=== PATIENT | male | born 1955 | race Caucasian/White ===

== ENCOUNTER 2020-07-20 11:38 | Emergency (ER) | payer MEDICARE, OTHER ==
[~2020-07-20] VITALS: Ht 175.3 cm; Wt 88.7 kg
[~2020-07-20 11:38] MED LIST: AMLO5TAB66 PO; ASPI-728 PO; DOCU-275 PO; ESCI20TA87 PO; HYDR25TA84 PO; ISOS30TA6 PO; SIMV-259 PO; TAMS-13 PO; TRAZ-252 PO
[2020-07-20 14:12] LABS: BASOPHILS % (AUTO) 0.7 % (0.0-2.0); EOSINOPHILS % (AUTO) 3.8 % (1.0-6.0); HEMATOCRIT 38.2 % (41-53); HEMOGLOBIN 12.8 g/dL (13.5-17.5); LYMPHOCYTES # (AUTO) 1.4 K/uL (1.0-4.8); MEAN CORPUSCULAR HEMOGLOBIN 32.2 pg (26.0-34.0); MEAN CORPUSCULAR HGB CONC 33.5 G/dL (31.0-37.0); MEAN CORPUSCULAR VOLUME 96 fL (80-100); MONOCYTES # (AUTO) 0.7 K/uL (0.1-1.0); MONOCYTES % (AUTO) 13.2 % (2.0-9.0); NEUTROPHILS # (AUTO) 2.7 K/uL (1.8-7.7); NEUTROPHILS % (AUTO) 54.3 % (40.0-70.0); PLATELET COUNT (AUTO) 117 K/uL (150-450); RED BLOOD CELL COUNT(AUTO) 3.97 MIL/uL (4.50-5.90); RED CELL DISTRIBUTION WIDTH 13.4 % (11.5-14.5)
[2020-07-20 14:21] LABS: ANION GAP 12 mmol/L (8-16); CALCIUM, TOTAL 8.7 mg/dL (8.8-10.5); CARBON DIOXIDE 23 mmol/L (22-29); CHLORIDE 104 mmol/L (98-107); CREATININE 1.02 mg/dL (0.60-1.30); GLOMERULAR FILTR. RATE CALC > 60 mL/min (>60); GLUCOSE,RANDOM 81 mg/dL (70-110); POTASSIUM 4.1 mmol/L (3.5-5.1); SODIUM SERUM 139 mmol/L (136-145); UREA NITROGEN, BLOOD 17 mg/dL (7-18)
[2020-07-20 14:29] LABS: B-TYPE NATRIURETIC PEPTIDE 22 pg/mL (0-100)
[2020-07-20 14:46] LABS: ALANINE AMINOTRANSFERASE 25 U/L (12-78); ALBUMIN 3.6 g/dL (3.4-5.0); ALKALINE PHOSPHATASE 112 U/L (46-116); ASPARTATE AMINOTRANSFERASE 17 U/L (15-37); BILIRUBIN,TOTAL 0.9 mg/dL (0.1-1.0); CREATINE KINASE, TOTAL ONLY 154 U/L (39-308); TOTAL PROTEIN, SERUM 6.9 g/dL (6.4-8.2)
[2020-07-20 14:47] VITALS: BP 138/85
[2020-07-20] MEDS ORDERED: ASPIRIN 81 MG CHEWABLE TABLET PO ONE (15:00)
== END 2020-07-20 17:01 | disposition home or self-care (01) ==
LOC: EMS 11:44 → EDBD 11:44 → EMS 17:01
DX: G45.9 Transient cerebral ischemic attack, unspecified (principal); R53.1 Weakness; F32.9 Major depressive disorder, single episode, unspecified; I10 Essential (primary) hypertension; Z86.73 Personal history of transient ischemic attack (TIA), and cerebral infarction without residual deficits; Z79.82 Long term (current) use of aspirin
CPT/HCPCS: 93005; 99284

== ENCOUNTER 2020-09-16 22:16 | Emergency (ER) | payer MEDICARE, OTHER ==
[~2020-09-16] VITALS: Ht 172.7 cm; Wt 89.6 kg
[~2020-09-16 22:16] MED LIST changes: +ASPI-1450 PO; -ASPI-728 PO; -ISOS30TA6 PO; +ISOS30TA92 PO
[2020-09-16 23:28] VITALS: BP 110/73
[2020-09-16 23:41] LABS: ANION GAP 12 mmol/L (8-16); BASOPHILS % (AUTO) 0.7 % (0.0-2.0); CALCIUM, TOTAL 8.3 mg/dL (8.8-10.5); CARBON DIOXIDE 24 mmol/L (22-29); CHLORIDE 110 mmol/L (98-107); CREATININE 1.08 mg/dL (0.60-1.30); EOSINOPHILS % (AUTO) 3.7 % (1.0-6.0); GLOMERULAR FILTR. RATE CALC > 60 mL/min (>60); GLUCOSE,RANDOM 123 mg/dL (70-110); HEMATOCRIT 38.6 % (41-53); HEMOGLOBIN 12.8 g/dL (13.5-17.5); LYMPHOCYTES # (AUTO) 1.7 K/uL (1.0-4.8); LYMPHOCYTES % (AUTO) 29.7 % (22.0-44.0); MEAN CORPUSCULAR HEMOGLOBIN 32.2 pg (26.0-34.0); MEAN CORPUSCULAR HGB CONC 33.3 G/dL (31.0-37.0); MEAN CORPUSCULAR VOLUME 97 fL (80-100); MONOCYTES # (AUTO) 0.5 K/uL (0.1-1.0); MONOCYTES % (AUTO) 9.3 % (2.0-9.0); NEUTROPHILS # (AUTO) 3.2 K/uL (1.8-7.7); NEUTROPHILS % (AUTO) 56.6 % (40.0-70.0); PLATELET COUNT (AUTO) 182 K/uL (150-450); POTASSIUM 3.7 mmol/L (3.5-5.1); RED BLOOD CELL COUNT(AUTO) 3.99 MIL/uL (4.50-5.90); RED CELL DISTRIBUTION WIDTH 13.2 % (11.5-14.5); SODIUM SERUM 146 mmol/L (136-145); UREA NITROGEN, BLOOD 19 mg/dL (7-18)
[2020-09-16 23:47] LABS: ALANINE AMINOTRANSFERASE 21 U/L (12-78); ALBUMIN 3.5 g/dL (3.4-5.0); ALKALINE PHOSPHATASE 153 U/L (46-116); ASPARTATE AMINOTRANSFERASE 15 U/L (15-37); BILIRUBIN,TOTAL 0.6 mg/dL (0.1-1.0); TOTAL PROTEIN, SERUM 7.2 g/dL (6.4-8.2)
[2020-09-16 23:52] LABS: INR 0.9 (0.9-1.1)
== END 2020-09-17 07:14 | disposition home or self-care (01) ==
LOC: EMS 22:19
DX: I10 Essential (primary) hypertension (principal); R51.9 Headache, unspecified; F32.9 Major depressive disorder, single episode, unspecified; Z86.73 Personal history of transient ischemic attack (TIA), and cerebral infarction without residual deficits; Z79.82 Long term (current) use of aspirin
CPT/HCPCS: 80053; 84484; 85025; 85610; 85730; 86850; 86900; 86901; 93005; 99285

== ENCOUNTER 2020-12-24 18:55 | Emergency (ER) | payer MEDICARE, OTHER ==
[~2020-12-24] VITALS: Ht 167.6 cm; Wt 75.0 kg
[2020-12-24 23:28] LABS: BASOPHILS % (AUTO) 0.4 % (0.0-2.0); EOSINOPHILS % (AUTO) 3.8 % (1.0-6.0); HEMATOCRIT 36.1 % (41-53); HEMOGLOBIN 12.2 g/dL (13.5-17.5); LYMPHOCYTES % (AUTO) 21.7 % (22.0-44.0); MEAN CORPUSCULAR HEMOGLOBIN 32.4 pg (26.0-34.0); MEAN CORPUSCULAR HGB CONC 33.8 G/dL (31.0-37.0); MEAN CORPUSCULAR VOLUME 96 fL (80-100); MONOCYTES # (AUTO) 0.7 K/uL (0.1-1.0); MONOCYTES % (AUTO) 15.7 % (2.0-9.0); NEUTROPHILS # (AUTO) 2.6 K/uL (1.8-7.7); NEUTROPHILS % (AUTO) 58.4 % (40.0-70.0); PLATELET COUNT (AUTO) 138 K/uL (150-450); RED BLOOD CELL COUNT(AUTO) 3.76 MIL/uL (4.50-5.90); RED CELL DISTRIBUTION WIDTH 13.9 % (11.5-14.5)
[2020-12-24 23:36] LABS: ANION GAP 10 mmol/L (8-16); CALCIUM, TOTAL 8.7 mg/dL (8.8-10.5); CARBON DIOXIDE 23 mmol/L (22-29); CHLORIDE 104 mmol/L (98-107); CREATININE 0.86 mg/dL (0.60-1.30); GLOMERULAR FILTR. RATE CALC > 60 mL/min (>60); GLUCOSE,RANDOM 101 mg/dL (70-110); SODIUM SERUM 137 mmol/L (136-145); UREA NITROGEN, BLOOD 15 mg/dL (7-18)
[2020-12-24 23:42] LABS: ALANINE AMINOTRANSFERASE 19 U/L (12-78); ALBUMIN 3.7 g/dL (3.4-5.0); ALKALINE PHOSPHATASE 120 U/L (46-116); ASPARTATE AMINOTRANSFERASE 18 U/L (15-37); BILIRUBIN,TOTAL 0.8 mg/dL (0.1-1.0); LIPASE 147 U/L (73-393)
[2020-12-25 07:36] LABS: APPEARANCE,URINE CLEAR (CLEAR); BILIRUBIN,URINE NEGATIVE (NEGATIVE); GLUCOSE, URINE (UA) NEGATIVE (NEGATIVE); KETONES,URINE TRACE mg/dL (NEGATIVE); LEUKOCYTE ESTERASE ,URINE NEGATIVE (NEGATIVE); NITRATE,URINE NEGATIVE (NEGATIVE); OCCULT BLOOD,URINE NEGATIVE (NEGATIVE); PROTEIN,URINE NEGATIVE (NEGATIVE)
[2020-12-25 07:46] LABS: BACTERIA,URINE None Seen /HPF (None Seen); CALCIUM OXALATE CRYSTALS,UR Few /LPF (None Seen); RBC,URINE None Seen /HPF (0-2); SQUAMOUS EPITHELIAL CELL,UR None Seen /LPF (None Seen); WBC,URINE None Seen /HPF (0-5)
[2020-12-25 07:58] VITALS: BP 124/76
[2020-12-27] MEDS ORDERED: ASPI-1227 PO ×4 (17:20→17:23)
[2020-12-27] MEDS ORDERED: ATOR20TA86 PO ×3 (17:21→17:24)
[2020-12-27] MEDS ORDERED: ASPI-1450 PO (17:23)
== END 2020-12-25 08:22 | disposition home or self-care (01) ==
LOC: EMS 19:00
DX: M48.36 Traumatic spondylopathy, lumbar region (principal); M43.16 Spondylolisthesis, lumbar region; M16.12 Unilateral primary osteoarthritis, left hip; K59.00 Constipation, unspecified; N32.9 Bladder disorder, unspecified; F32.9 Major depressive disorder, single episode, unspecified; I10 Essential (primary) hypertension; Z86.73 Personal history of transient ischemic attack (TIA), and cerebral infarction without residual deficits; Z79.82 Long term (current) use of aspirin
CPT/HCPCS: 72131; 72148; 74018; 80053; 81001; 83690; 85025; 99285; 36415-L1; 36415-TC

== ENCOUNTER 2021-05-31 20:44 | Emergency (ER) | payer MEDICARE, OTHER ==
[~2021-05-31] VITALS: Ht 172.7 cm; Wt 81.8 kg
[~2021-05-31 20:44] MED LIST changes: +AMLO-257 PO; -AMLO5TAB66 PO; +ATOR20TA86 PO; -DOCU-275 PO; -ESCI20TA87 PO; -HYDR25TA84 PO; -ISOS30TA92 PO; -SIMV-259 PO; -TAMS-13 PO; -TRAZ-252 PO
[2021-05-31] MEDS ORDERED: QUET25TA PO (21:12)
[2021-05-31] MEDS ORDERED: FINA-27 PO (21:12)
[2021-05-31] MEDS ORDERED: TAMS-13 PO (21:12)
[2021-05-31] MEDS ORDERED: SERT-158 PO (21:12)
[2021-05-31] MEDS ORDERED: SODIUM CHLORIDE 0.9% 1,000 ML IV ONE (22:00)
[2021-05-31 22:09] LABS: BASOPHILS % (AUTO) 0.6 % (0.0-2.0); HEMATOCRIT 36.3 % (41-53); HEMOGLOBIN 12.3 g/dL (13.5-17.5); LYMPHOCYTES # (AUTO) 1.6 K/uL (1.0-4.8); LYMPHOCYTES % (AUTO) 26.6 % (22.0-44.0); MEAN CORPUSCULAR HEMOGLOBIN 31.6 pg (26.0-34.0); MEAN CORPUSCULAR HGB CONC 33.8 G/dL (31.0-37.0); MEAN CORPUSCULAR VOLUME 94 fL (80-100); MONOCYTES # (AUTO) 0.8 K/uL (0.1-1.0); MONOCYTES % (AUTO) 13.9 % (2.0-9.0); NEUTROPHILS # (AUTO) 2.9 K/uL (1.8-7.7); NEUTROPHILS % (AUTO) 49.9 % (40.0-70.0); PLATELET COUNT (AUTO) 159 K/uL (150-450); RED BLOOD CELL COUNT(AUTO) 3.88 MIL/uL (4.50-5.90); RED CELL DISTRIBUTION WIDTH 14.6 % (11.5-14.5)
[2021-05-31 22:17] LABS: ANION GAP 4 mmol/L (8-16); CALCIUM, TOTAL 9.1 mg/dL (8.8-10.5); CARBON DIOXIDE 31 mmol/L (22-29); CHLORIDE 106 mmol/L (98-107); CREATININE 1.03 mg/dL (0.60-1.30); GLOMERULAR FILTR. RATE CALC > 60 mL/min (>60); GLUCOSE,RANDOM 96 mg/dL (70-110); POTASSIUM 4.5 mmol/L (3.5-5.1); SODIUM SERUM 141 mmol/L (136-145); UREA NITROGEN, BLOOD 28 mg/dL (7-18)
[2021-05-31 22:23] LABS: ALANINE AMINOTRANSFERASE 50 U/L (12-78); ALBUMIN 3.4 g/dL (3.4-5.0); ALKALINE PHOSPHATASE 118 U/L (46-116); ASPARTATE AMINOTRANSFERASE 22 U/L (15-37); BILIRUBIN,TOTAL 0.5 mg/dL (0.1-1.0); TOTAL PROTEIN, SERUM 7.2 g/dL (6.4-8.2)
[2021-05-31 22:44] LABS: APPEARANCE,URINE CLEAR (CLEAR); BILIRUBIN,URINE NEGATIVE (NEGATIVE); GLUCOSE, URINE (UA) NEGATIVE (NEGATIVE); KETONES,URINE NEGATIVE (NEGATIVE); LEUKOCYTE ESTERASE ,URINE NEGATIVE (NEGATIVE); NITRATE,URINE NEGATIVE (NEGATIVE); OCCULT BLOOD,URINE NEGATIVE (NEGATIVE); PROTEIN,URINE NEGATIVE (NEGATIVE)
[2021-05-31 23:19] VITALS: BP 145/84
[2021-05-31 23:22] LABS: BACTERIA,URINE Rare /HPF (None Seen); RBC,URINE None Seen /HPF (0-2); WBC,URINE 0-2 /HPF (0-5)
== END 2021-06-01 00:31 | disposition home or self-care (01) ==
LOC: EMS 20:49
DX: R35.0 Frequency of micturition (principal); I10 Essential (primary) hypertension; F32.9 Major depressive disorder, single episode, unspecified; Z79.899 Other long term (current) drug therapy; Z87.891 Personal history of nicotine dependence
CPT/HCPCS: 80053; 81001; 85025; 96360; 99283; 36415-L1; 36415-TC

== ENCOUNTER 2021-08-19 02:53 | Inpatient (IN) | payer MEDICARE, OTHER ==
[~2021-08-19] VITALS: Ht 165.1 cm; Wt 90.8 kg
[~2021-08-19 02:53] MED LIST changes: +ACET-2895 PO; +AUD NEB; +BISA10SU11 PR; +DOCU-270 PO; +FINA-27 PO; +HEPA500018 SQ; +OS500 PO; +PANT-31 PO; +QUET25TA PO; +SERT-158 PO; +TAMS-13 PO
[2021-08-19 03:42] LABS: COVID AG,FIA SOURCE NASAL SWAB
[2021-08-19 03:47] LABS: BASOPHILS % (AUTO) 0.4 % (0.0-2.0); EOSINOPHILS % (AUTO) 4.9 % (1.0-6.0); HEMOGLOBIN 13.5 g/dL (13.5-17.5); LYMPHOCYTES # (AUTO) 1.8 K/uL (1.0-4.8); LYMPHOCYTES % (AUTO) 30.2 % (22.0-44.0); MEAN CORPUSCULAR HGB CONC 34.5 G/dL (31.0-37.0); MEAN CORPUSCULAR VOLUME 93 fL (80-100); MONOCYTES # (AUTO) 0.6 K/uL (0.1-1.0); MONOCYTES % (AUTO) 10.4 % (2.0-9.0); NEUTROPHILS # (AUTO) 3.2 K/uL (1.8-7.7); NEUTROPHILS % (AUTO) 54.1 % (40.0-70.0); PLATELET COUNT (AUTO) 167 K/uL (150-450); RED BLOOD CELL COUNT(AUTO) 4.21 MIL/uL (4.50-5.90); RED CELL DISTRIBUTION WIDTH 14.1 % (11.5-14.5)
[2021-08-19 03:48] LABS: ANION GAP 9 mmol/L (8-16); CALCIUM, TOTAL 8.6 mg/dL (8.8-10.5); CARBON DIOXIDE 25 mmol/L (22-29); CHLORIDE 103 mmol/L (98-107); CREATININE 1.14 mg/dL (0.60-1.30); GLOMERULAR FILTR. RATE CALC > 60 mL/min (>60); GLUCOSE,RANDOM 92 mg/dL (70-110); POTASSIUM 3.9 mmol/L (3.5-5.1); SODIUM SERUM 137 mmol/L (136-145); UREA NITROGEN, BLOOD 19 mg/dL (7-18)
[2021-08-19] MEDS ORDERED: SODIUM CHLORIDE 0.9% 100 ML ONE (03:48)
[2021-08-19] MEDS ORDERED: IOHEXOL 350 MG/ML 100 ML VIAL ONE (03:48)
[2021-08-19 03:53] LABS: ALANINE AMINOTRANSFERASE 77 U/L (12-78); ALBUMIN 3.9 g/dL (3.4-5.0); ALKALINE PHOSPHATASE 137 U/L (46-116); ASPARTATE AMINOTRANSFERASE 42 U/L (15-37)
[2021-08-19 03:54] LABS: PROTHROMBIN TIME 10.5 SEC (9.4-11.6)
[2021-08-19 05:00] VITALS: BP 153/97
[2021-08-19] MEDS ORDERED: ONDANSETRON HCL 4 MG/2 ML VIAL IVP PRN (05:00)
[2021-08-19] MEDS ORDERED: SODIUM CHLORIDE 0.9% 1,000 ML IV ONE (05:00)
[2021-08-19] MEDS ORDERED: 0.9% SODIUM CHLORIDE 10 ML SYRINGE IVP PRN (05:00)
[2021-08-19] MEDS ORDERED: ASPIRIN 81 MG CHEWABLE TABLET PO ONE (05:00)
[2021-08-19 07:16] VITALS: BP 147/88
[2021-08-19] MEDS ORDERED: ACETAMINOPHEN 325 MG TABLET PO PRN (08:15)
[2021-08-19 08:36] LABS: AMPHET/METH SCREEN,URINE NEGATIVE (NEGATIVE); BARBITURATE SCREEN, URINE NEGATIVE (NEGATIVE); BENZODIAZEPINES SCREEN,URINE NEGATIVE (NEGATIVE); CANNABINOID SCREEN,URINE NEGATIVE (NEGATIVE); COCAINE SCREEN,URINE NEGATIVE (NEGATIVE); METHADONE SCREEN, URINE NEGATIVE (NEGATIVE); OPIATE SCREEN,URINE NEGATIVE (NEGATIVE)
[2021-08-19 08:37] LABS: PHENCYCLIDINE SCREEN,URINE NEGATIVE (NEGATIVE)
[2021-08-19 09:07] LABS: APPEARANCE,URINE CLEAR (CLEAR); PH,URINE 5.5 (5.0-8.0); PROTEIN,URINE NEGATIVE (NEGATIVE)
[2021-08-19 09:08] LABS: BACTERIA,URINE None Seen /HPF (None Seen); BILIRUBIN,URINE NEGATIVE (NEGATIVE); GLUCOSE, URINE (UA) NEGATIVE (NEGATIVE); KETONES,URINE NEGATIVE (NEGATIVE); LEUKOCYTE ESTERASE ,URINE NEGATIVE (NEGATIVE); NITRATE,URINE NEGATIVE (NEGATIVE); OCCULT BLOOD,URINE NEGATIVE (NEGATIVE); RBC,URINE None Seen /HPF (0-2); UROBILINOGEN,URINE <=1.0 mg/dL (<=1.0); WBC,URINE None Seen /HPF (0-5)
[2021-08-19] MEDS: ATORVASTATIN CALCIUM 40 MG TABLET PO SCH (09:21)
[2021-08-19] MEDS: AmLODIPine BESYLATE 5 MG TABLET PO SCH (09:21)
[2021-08-19] MEDS: DOCUSATE SODIUM 100 MG CAPSULE PO SCH ×2 (09:21→20:43)
[2021-08-19] MEDS: ASPIRIN 81 MG CHEWABLE TABLET PO SCH (09:21)
[2021-08-19] MEDS: FAMOTIDINE 20 MG TABLET PO SCH (09:22)
[2021-08-19 10:40] VITALS: BP 138/86
[2021-08-19] MEDS: HEPARIN SODIUM,PORCINE 5,000 UNITS/ML VIAL SQ SCH (16:16)
[2021-08-19 16:39] VITALS: BP 126/69
[2021-08-19 19:54] VITALS: BP 140/88
[2021-08-20] MEDS: HEPARIN SODIUM,PORCINE 5,000 UNITS/ML VIAL SQ SCH ×3 (00:21→16:34)
[2021-08-20 05:30] VITALS: BP 146/81
[2021-08-20 07:38] VITALS: BP 138/93
[2021-08-20] MEDS: ATORVASTATIN CALCIUM 40 MG TABLET PO SCH (08:02)
[2021-08-20] MEDS: ASPIRIN 81 MG CHEWABLE TABLET PO SCH (08:02)
[2021-08-20] MEDS: FAMOTIDINE 20 MG TABLET PO SCH (08:02)
[2021-08-20] MEDS: DOCUSATE SODIUM 100 MG CAPSULE PO SCH ×2 (08:02→20:12)
[2021-08-20] MEDS: AmLODIPine BESYLATE 5 MG TABLET PO SCH (08:02)
[2021-08-20 11:18] VITALS: BP 145/88
[2021-08-20 20:53] VITALS: BP 154/96
[2021-08-21 00:58] VITALS: BP 143/82
[2021-08-21 05:20] VITALS: BP 160/93
[2021-08-21] MEDS: DOCUSATE SODIUM 100 MG CAPSULE PO SCH (08:05)
[2021-08-21] MEDS: HEPARIN SODIUM,PORCINE 5,000 UNITS/ML VIAL SQ SCH ×3 (08:20→16:23)
[2021-08-21] MEDS: ASPIRIN 81 MG CHEWABLE TABLET PO SCH (08:21)
[2021-08-21] MEDS: ATORVASTATIN CALCIUM 40 MG TABLET PO SCH (08:22)
[2021-08-21] MEDS: FAMOTIDINE 20 MG TABLET PO SCH (08:22)
[2021-08-21 08:23] VITALS: BP 122/79
[2021-08-21 10:43] VITALS: BP 139/96
[2021-08-21] MEDS: AmLODIPine BESYLATE 5 MG TABLET PO SCH (10:45)
[2021-08-21 12:31] VITALS: BP 133/86
[2021-08-21] MEDS ORDERED: DOCU-270 PO (15:45)
[2021-08-21] MEDS ORDERED: FAMO20 PO (15:45)
[2021-08-21] MEDS ORDERED: ACET-2247 PO (15:46)
[2021-08-21] MEDS ORDERED: HEPA500018 SQ (15:46)
[2021-08-21 16:09] VITALS: BP 128/83
== END 2021-08-21 17:55 | DRG 69 ==
LOC: EMS 02:53 → 5S 04:53
PROVIDERS: ADMIT Internal Medicine; ATTEND Internal Medicine
DX: G45.9 Transient cerebral ischemic attack, unspecified (principal); I69.354 Hemiplegia and hemiparesis following cerebral infarction affecting left non-dominant side; I10 Essential (primary) hypertension; E66.9 Obesity, unspecified; R29.6 Repeated falls; Z20.822 Contact with and (suspected) exposure to COVID-19; N40.0 Benign prostatic hyperplasia without lower urinary tract symptoms; E78.00 Pure hypercholesterolemia, unspecified; Z68.33 Body mass index [BMI] 33.0-33.9, adult
CPT/HCPCS: 70496; 70498; 71045; 80053; 81001; 84484; 85025; 85610; 85730; 86850; 86900; 86901; 92610; 93005; 93306; 97116; 97161; 97165; 97530; 97535; 99291; G0378; J1644; J7050; Q9967; 36415-L1; 36415-TC; 70450; 70450-TC

== ENCOUNTER 2022-12-22 06:04 | Emergency (ER) | payer MEDICARE, OTHER ==
[~2022-12-22] VITALS: Ht 170.2 cm; Wt 88.6 kg
[~2022-12-22 06:04] MED LIST changes: +ACET-2247 PO; -ACET-2895 PO; +ATOR20TA PO; -ATOR20TA86 PO; -AUD NEB; -BISA10SU11 PR; -DOCU-270 PO; +DOCU-385 PO; +FAMO20 PO; -OS500 PO; -PANT-31 PO; -QUET25TA PO; -TAMS-13 PO
[2022-12-22 06:22] VITALS: TEMP 98.4
[2022-12-22 06:55] LABS: APPEARANCE,URINE CLEAR (CLEAR); BILIRUBIN,URINE NEGATIVE (NEGATIVE); GLUCOSE, URINE (UA) NEGATIVE (NEGATIVE); KETONES,URINE NEGATIVE (NEGATIVE); LEUKOCYTE ESTERASE ,URINE NEGATIVE (NEGATIVE); NITRATE,URINE NEGATIVE (NEGATIVE); OCCULT BLOOD,URINE NEGATIVE (NEGATIVE); PROTEIN,URINE NEGATIVE (NEGATIVE); SPECIFIC GRAVITIY, URINE 1.027 (1.003-1.030); UROBILINOGEN,URINE <=1.0 mg/dL (<=1.0)
[2022-12-22 08:48] VITALS: BP 140/106; PULSE 90; RESP 16
== END 2022-12-22 09:46 | disposition home or self-care (01) ==
LOC: EMS 06:04
DX: M25.512 Pain in left shoulder (principal); E78.00 Pure hypercholesterolemia, unspecified; I10 Essential (primary) hypertension; K21.9 Gastro-esophageal reflux disease without esophagitis; F32.A Depression, unspecified; I63.9 Cerebral infarction, unspecified; G45.9 Transient cerebral ischemic attack, unspecified; I99.9 Unspecified disorder of circulatory system; Z87.891 Personal history of nicotine dependence
CPT/HCPCS: 81003; 99284

== ENCOUNTER 2022-12-22 12:47 | Emergency (ER) | payer MEDICARE, OTHER ==
[~2022-12-22] VITALS: Ht 175.3 cm; Wt 90.9 kg
[2022-12-22 14:05] VITALS: TEMP 98.3
[2022-12-22 16:00] VITALS: BP 148/89; PULSE 90; RESP 16
== END 2022-12-22 17:24 | disposition home or self-care (01) ==
LOC: EMS 12:47
DX: Z74.1 Need for assistance with personal care (principal); M19.90 Unspecified osteoarthritis, unspecified site; F32.A Depression, unspecified; E78.00 Pure hypercholesterolemia, unspecified; I10 Essential (primary) hypertension; N40.0 Benign prostatic hyperplasia without lower urinary tract symptoms; Z87.891 Personal history of nicotine dependence
CPT/HCPCS: 99283; Z7502

== ENCOUNTER 2023-01-07 00:28 | Inpatient (IN) | payer MEDICARE, OTHER ==
[~2023-01-07] VITALS: Ht 172.7 cm; Wt 96.7 kg
[2023-01-07 01:21] LABS: BASOPHILS % (AUTO) 0.9 % (0.0-2.0); EOSINOPHILS % (AUTO) 3.8 % (1.0-6.0); HEMATOCRIT 35.8 % (41-53); HEMOGLOBIN 12.2 g/dL (13.5-17.5); LYMPHOCYTES # (AUTO) 1.8 K/uL (1.0-4.8); MEAN CORPUSCULAR HEMOGLOBIN 32.5 pg (26.0-34.0); MEAN CORPUSCULAR HGB CONC 34.1 G/dL (31.0-37.0); MEAN CORPUSCULAR VOLUME 95 fL (80-100); MONOCYTES # (AUTO) 0.7 K/uL (0.1-1.0); MONOCYTES % (AUTO) 13.2 % (2.0-9.0); NEUTROPHILS # (AUTO) 2.6 K/uL (1.8-7.7); NEUTROPHILS % (AUTO) 49.1 % (40.0-70.0); PLATELET COUNT (AUTO) 146 K/uL (150-450); RED BLOOD CELL COUNT(AUTO) 3.76 MIL/uL (4.50-5.90); RED CELL DISTRIBUTION WIDTH 14.6 % (11.5-14.5)
[2023-01-07 01:34] LABS: ANION GAP 9 mmol/L (8-16); CALCIUM, TOTAL 8.1 mg/dL (8.8-10.5); CARBON DIOXIDE 24 mmol/L (22-29); CHLORIDE 107 mmol/L (98-107); CREATININE 0.95 mg/dL (0.60-1.30); GLOMERULAR FILTR. RATE CALC > 60 mL/min (>60); GLUCOSE,RANDOM 105 mg/dL (70-110); SODIUM SERUM 140 mmol/L (136-145)
[2023-01-07 01:39] LABS: ALANINE AMINOTRANSFERASE 8 U/L (12-78); ALBUMIN 3.2 g/dL (3.4-5.0); ALKALINE PHOSPHATASE 95 U/L (46-116); ASPARTATE AMINOTRANSFERASE 15 U/L (15-37); BILIRUBIN,TOTAL 0.7 mg/dL (0.1-1.0); TOTAL PROTEIN, SERUM 6.4 g/dL (6.4-8.2)
[2023-01-07 01:42] LABS: APPEARANCE,URINE CLEAR (CLEAR); BILIRUBIN,URINE NEGATIVE (NEGATIVE); GLUCOSE, URINE (UA) TRACE mg/dL (NEGATIVE); KETONES,URINE NEGATIVE (NEGATIVE); LEUKOCYTE ESTERASE ,URINE NEGATIVE (NEGATIVE); NITRATE,URINE NEGATIVE (NEGATIVE); OCCULT BLOOD,URINE NEGATIVE (NEGATIVE); PH,URINE 6.5 (5.0-8.0); PROTEIN,URINE NEGATIVE (NEGATIVE); SPECIFIC GRAVITIY, URINE 1.027 (1.003-1.030); UROBILINOGEN,URINE <=1.0 mg/dL (<=1.0)
[2023-01-07] MEDS ORDERED: 0.9% SODIUM CHLORIDE 10 ML SYRINGE IVP PRN (02:00)
[2023-01-07] MEDS ORDERED: ACETAMINOPHEN 325 MG TABLET PO PRN ×2 (02:00→08:15)
[2023-01-07] MEDS ORDERED: ACETAMINOPHEN 500 MG TABLET PO ONE (02:00)
[2023-01-07] MEDS ORDERED: ONDANSETRON HCL 4 MG/2 ML VIAL IVP PRN (02:00)
[2023-01-07] MEDS ORDERED: MAGNESIUM HYDROXIDE SUSPENSION 30 ML UDCUP PO PRN (08:15)
[2023-01-07] MEDS: ATORVASTATIN CALCIUM 20 MG TABLET PO SCH (08:48)
[2023-01-07] MEDS: AmLODIPine BESYLATE 5 MG TABLET PO SCH (08:48)
[2023-01-07] MEDS: DOCUSATE SODIUM 100 MG CAPSULE PO SCH ×2 (08:48→20:32)
[2023-01-07] MEDS: FAMOTIDINE 20 MG TABLET PO SCH (08:49)
[2023-01-07] MEDS: ASPIRIN 81 MG CHEWABLE TABLET PO SCH (08:49)
[2023-01-07] MEDS: HEPARIN SODIUM,PORCINE 5,000 UNITS/ML VIAL SQ SCH ×2 (16:17→23:16)
[2023-01-07 22:43] VITALS: BP 132/92; PULSE 78; RESP 20; TEMP 97.8
[2023-01-08 04:27] VITALS: BP 146/91; PULSE 73; RESP 18; TEMP 97.9
[2023-01-08 07:19] LABS: BASOPHILS % (AUTO) 0.9 % (0.0-2.0); EOSINOPHILS % (AUTO) 3.9 % (1.0-6.0); HEMATOCRIT 40.9 % (41-53); LYMPHOCYTES # (AUTO) 1.6 K/uL (1.0-4.8); LYMPHOCYTES % (AUTO) 26.2 % (22.0-44.0); MEAN CORPUSCULAR HEMOGLOBIN 32.5 pg (26.0-34.0); MEAN CORPUSCULAR HGB CONC 34.1 G/dL (31.0-37.0); MEAN CORPUSCULAR VOLUME 95 fL (80-100); MONOCYTES # (AUTO) 0.6 K/uL (0.1-1.0); MONOCYTES % (AUTO) 9.5 % (2.0-9.0); NEUTROPHILS # (AUTO) 3.6 K/uL (1.8-7.7); NEUTROPHILS % (AUTO) 59.5 % (40.0-70.0); PLATELET COUNT (AUTO) 157 K/uL (150-450); RED BLOOD CELL COUNT(AUTO) 4.29 MIL/uL (4.50-5.90); RED CELL DISTRIBUTION WIDTH 14.1 % (11.5-14.5)
[2023-01-08 07:37] LABS: ALANINE AMINOTRANSFERASE 18 U/L (12-78); ALBUMIN 3.5 g/dL (3.4-5.0); ALKALINE PHOSPHATASE 124 U/L (46-116); ANION GAP 6 mmol/L (8-16); ASPARTATE AMINOTRANSFERASE 18 U/L (15-37); CARBON DIOXIDE 25 mmol/L (22-29); CHLORIDE 103 mmol/L (98-107); CREATININE 0.84 mg/dL (0.60-1.30); GLOMERULAR FILTR. RATE CALC > 60 mL/min (>60); GLUCOSE,RANDOM 102 mg/dL (70-110); POTASSIUM 4.7 mmol/L (3.5-5.1); SODIUM SERUM 134 mmol/L (136-145); TOTAL PROTEIN, SERUM 7.6 g/dL (6.4-8.2)
[2023-01-08 08:17] VITALS: BP 109/85; PULSE 81; RESP 20; TEMP 97.7
[2023-01-08] MEDS: AmLODIPine BESYLATE 5 MG TABLET PO SCH (08:23)
[2023-01-08] MEDS: ASPIRIN 81 MG CHEWABLE TABLET PO SCH (08:23)
[2023-01-08] MEDS: DOCUSATE SODIUM 100 MG CAPSULE PO SCH ×2 (08:23→21:00)
[2023-01-08] MEDS: ATORVASTATIN CALCIUM 20 MG TABLET PO SCH (08:24)
[2023-01-08] MEDS: HEPARIN SODIUM,PORCINE 5,000 UNITS/ML VIAL SQ SCH ×3 (08:24→23:39)
[2023-01-08] MEDS: FAMOTIDINE 20 MG TABLET PO SCH (09:07)
[2023-01-08 16:21] VITALS: BP 115/54; PULSE 82; RESP 20; TEMP 97.5
[2023-01-08 20:01] VITALS: BP 122/66; PULSE 76; RESP 20; TEMP 98.1
[2023-01-09 04:33] VITALS: BP 139/91; PULSE 80; RESP 20; TEMP 98.3
[2023-01-09] MEDS: DOCUSATE SODIUM 100 MG CAPSULE PO SCH ×2 (07:52→20:30)
[2023-01-09 07:56] VITALS: BP 130/84; PULSE 82; RESP 20; TEMP 97.9
[2023-01-09] MEDS: HEPARIN SODIUM,PORCINE 5,000 UNITS/ML VIAL SQ SCH ×3 (08:10→23:25)
[2023-01-09] MEDS: ATORVASTATIN CALCIUM 20 MG TABLET PO SCH (08:10)
[2023-01-09] MEDS: AmLODIPine BESYLATE 5 MG TABLET PO SCH (08:10)
[2023-01-09] MEDS: ASPIRIN 81 MG CHEWABLE TABLET PO SCH (08:10)
[2023-01-09] MEDS: FAMOTIDINE 20 MG TABLET PO SCH (08:10)
[2023-01-09 09:17] VITALS: O2SAT 98
[2023-01-09 15:43] VITALS: BP 160/96; PULSE 83; RESP 20; TEMP 98.7
[2023-01-09 19:37] VITALS: BP 108/57; PULSE 86; RESP 20; TEMP 97.5
[2023-01-10 03:46] VITALS: BP 116/73; PULSE 66; RESP 20; TEMP 97.6
[2023-01-10] MEDS: DOCUSATE SODIUM 100 MG CAPSULE PO SCH (07:18)
[2023-01-10 08:00] VITALS: BP 136/97; PULSE 71; RESP 19; TEMP 97.5
[2023-01-10] MEDS: ATORVASTATIN CALCIUM 20 MG TABLET PO SCH (08:01)
[2023-01-10] MEDS: HEPARIN SODIUM,PORCINE 5,000 UNITS/ML VIAL SQ SCH (08:01)
[2023-01-10] MEDS: AmLODIPine BESYLATE 5 MG TABLET PO SCH (08:01)
[2023-01-10] MEDS: ASPIRIN 81 MG CHEWABLE TABLET PO SCH (08:02)
[2023-01-10] MEDS: FAMOTIDINE 20 MG TABLET PO SCH (08:02)
[2023-01-10 09:06] VITALS: O2SAT 96
== END 2023-01-10 16:30 | disposition home or self-care (01) | DRG 641 ==
LOC: EMS 00:30 → ICUN 04:00 → 6S 21:35
PROVIDERS: ADMIT Internal Medicine; ATTEND Internal Medicine
DX: R62.7 Adult failure to thrive (principal); I69.354 Hemiplegia and hemiparesis following cerebral infarction affecting left non-dominant side; E78.5 Hyperlipidemia, unspecified; I10 Essential (primary) hypertension; N40.0 Benign prostatic hyperplasia without lower urinary tract symptoms; R26.2 Difficulty in walking, not elsewhere classified; R53.81 Other malaise; E66.9 Obesity, unspecified; R53.1 Weakness; M19.90 Unspecified osteoarthritis, unspecified site; Z79.82 Long term (current) use of aspirin; Z79.899 Other long term (current) drug therapy; Z68.32 Body mass index [BMI] 32.0-32.9, adult; Z91.148 Patient's other noncompliance with medication regimen for other reason
CPT/HCPCS: 51701; 70450; 80053; 81003; 85025; 97116; 97162; 97530; 99285; J1644

== ENCOUNTER 2023-01-18 17:18 | Emergency (ER) | payer MEDICARE, OTHER ==
[~2023-01-18] VITALS: Ht 172.7 cm; Wt 90.9 kg
[~2023-01-18 17:18] MED LIST changes: -HEPA500018 SQ
[2023-01-18 20:14] VITALS: TEMP 98.3
[2023-01-18 22:29] LABS: BASOPHILS % (AUTO) 0.5 % (0.0-2.0); EOSINOPHILS % (AUTO) 2.6 % (1.0-6.0); HEMATOCRIT 39.2 % (41-53); LYMPHOCYTES # (AUTO) 1.6 K/uL (1.0-4.8); LYMPHOCYTES % (AUTO) 28.4 % (22.0-44.0); MEAN CORPUSCULAR HEMOGLOBIN 31.8 pg (26.0-34.0); MEAN CORPUSCULAR HGB CONC 33.1 G/dL (31.0-37.0); MEAN CORPUSCULAR VOLUME 96 fL (80-100); MONOCYTES # (AUTO) 0.7 K/uL (0.1-1.0); MONOCYTES % (AUTO) 12.6 % (2.0-9.0); NEUTROPHILS # (AUTO) 3.1 K/uL (1.8-7.7); NEUTROPHILS % (AUTO) 55.9 % (40.0-70.0); PLATELET COUNT (AUTO) 183 K/uL (150-450); RED BLOOD CELL COUNT(AUTO) 4.08 MIL/uL (4.50-5.90); RED CELL DISTRIBUTION WIDTH 14.5 % (11.5-14.5)
[2023-01-18 22:40] LABS: APPEARANCE,URINE CLEAR (CLEAR); BILIRUBIN,URINE NEGATIVE (NEGATIVE); GLUCOSE, URINE (UA) NEGATIVE (NEGATIVE); LEUKOCYTE ESTERASE ,URINE NEGATIVE (NEGATIVE); NITRATE,URINE NEGATIVE (NEGATIVE); OCCULT BLOOD,URINE NEGATIVE (NEGATIVE); PH,URINE 5.5 (5.0-8.0); PROTEIN,URINE NEGATIVE (NEGATIVE); SPECIFIC GRAVITIY, URINE 1.022 (1.003-1.030); UROBILINOGEN,URINE <=1.0 mg/dL (<=1.0)
[2023-01-18 22:41] LABS: ANION GAP 17 mmol/L (8-16); CALCIUM, TOTAL 8.4 mg/dL (8.8-10.5); CARBON DIOXIDE 22 mmol/L (22-29); CHLORIDE 103 mmol/L (98-107); CREATININE 0.93 mg/dL (0.60-1.30); GLOMERULAR FILTR. RATE CALC > 60 mL/min (>60); GLUCOSE,RANDOM 92 mg/dL (70-110); POTASSIUM 3.9 mmol/L (3.5-5.1); SODIUM SERUM 142 mmol/L (136-145)
[2023-01-18 22:47] LABS: ALANINE AMINOTRANSFERASE 18 U/L (12-78); ALBUMIN 3.5 g/dL (3.4-5.0); ALKALINE PHOSPHATASE 112 U/L (46-116); ASPARTATE AMINOTRANSFERASE 18 U/L (15-37); BILIRUBIN,TOTAL 1.3 mg/dL (0.1-1.0)
[2023-01-19] MEDS ORDERED: TAMSULOSIN HCL 0.4 MG CAPSULE PO ONE (04:30)
[2023-01-19] MEDS ORDERED: TAMS-13 PO (04:35)
[2023-01-19 08:34] VITALS: BP 98/77; PULSE 77; RESP 18
== END 2023-01-19 08:35 | disposition home or self-care (01) ==
LOC: MERGE 17:22 → EMS 17:22
DX: N13.9 Obstructive and reflux uropathy, unspecified (principal); N40.0 Benign prostatic hyperplasia without lower urinary tract symptoms
CPT/HCPCS: 74176; 80053; 81003; 85025; 99284

== ENCOUNTER 2023-01-19 22:50 | Emergency (ER) | payer MEDICARE, OTHER ==
[~2023-01-19] VITALS: Ht 172.7 cm; Wt 87.0 kg
[~2023-01-19 22:50] MED LIST changes: +TAMS-13 PO
[2023-01-19 23:11] VITALS: TEMP 98.2
[2023-01-20 00:01] LABS: BASOPHILS % (AUTO) 1.2 % (0.0-2.0); EOSINOPHILS % (AUTO) 2.3 % (1.0-6.0); HEMATOCRIT 37.3 % (41-53); HEMOGLOBIN 12.8 g/dL (13.5-17.5); LYMPHOCYTES # (AUTO) 1.7 K/uL (1.0-4.8); MEAN CORPUSCULAR HEMOGLOBIN 32.5 pg (26.0-34.0); MEAN CORPUSCULAR HGB CONC 34.3 G/dL (31.0-37.0); MEAN CORPUSCULAR VOLUME 95 fL (80-100); MONOCYTES # (AUTO) 0.7 K/uL (0.1-1.0); MONOCYTES % (AUTO) 12.1 % (2.0-9.0); NEUTROPHILS # (AUTO) 3.1 K/uL (1.8-7.7); NEUTROPHILS % (AUTO) 54.4 % (40.0-70.0); PLATELET COUNT (AUTO) 193 K/uL (150-450); RED BLOOD CELL COUNT(AUTO) 3.94 MIL/uL (4.50-5.90); RED CELL DISTRIBUTION WIDTH 14.6 % (11.5-14.5)
[2023-01-20 00:09] LABS: ANION GAP 12 mmol/L (8-16); CALCIUM, TOTAL 8.4 mg/dL (8.8-10.5); CARBON DIOXIDE 23 mmol/L (22-29); CHLORIDE 104 mmol/L (98-107); CREATININE 1.13 mg/dL (0.60-1.30); GLOMERULAR FILTR. RATE CALC > 60 mL/min (>60); GLUCOSE,RANDOM 99 mg/dL (70-110); SODIUM SERUM 139 mmol/L (136-145)
[2023-01-20 00:34] LABS: ALANINE AMINOTRANSFERASE 19 U/L (12-78); ALBUMIN 3.5 g/dL (3.4-5.0); ALKALINE PHOSPHATASE 115 U/L (46-116); ASPARTATE AMINOTRANSFERASE 19 U/L (15-37); B-TYPE NATRIURETIC PEPTIDE 11 pg/mL (0-100); BILIRUBIN,TOTAL 1.4 mg/dL (0.1-1.0); CREATINE KINASE, TOTAL ONLY 198 U/L (39-308); TOTAL PROTEIN, SERUM 7.1 g/dL (6.4-8.2)
[2023-01-20 07:23] VITALS: BP 112/67; PULSE 72; RESP 17
== END 2023-01-20 07:30 | disposition home or self-care (01) ==
LOC: EMS 22:50
DX: R20.2 Paresthesia of skin (principal); Z86.73 Personal history of transient ischemic attack (TIA), and cerebral infarction without residual deficits
CPT/HCPCS: 70450; 71045; 80053; 82550; 83880; 84484; 85025; 93005; 99285; 36415-L1; 36415-TC

== ENCOUNTER 2023-01-22 04:49 | Emergency (ER) | payer MEDICARE, OTHER ==
[~2023-01-22] VITALS: Ht 172.7 cm; Wt 94.0 kg
[2023-01-22 06:43] LABS: BASOPHILS % (AUTO) 1.1 % (0.0-2.0); EOSINOPHILS % (AUTO) 2.4 % (1.0-6.0); HEMATOCRIT 36.5 % (41-53); LYMPHOCYTES # (AUTO) 1.4 K/uL (1.0-4.8); LYMPHOCYTES % (AUTO) 30.6 % (22.0-44.0); MEAN CORPUSCULAR HEMOGLOBIN 31.6 pg (26.0-34.0); MEAN CORPUSCULAR HGB CONC 32.9 G/dL (31.0-37.0); MEAN CORPUSCULAR VOLUME 96 fL (80-100); MONOCYTES # (AUTO) 0.6 K/uL (0.1-1.0); NEUTROPHILS # (AUTO) 2.5 K/uL (1.8-7.7); NEUTROPHILS % (AUTO) 53.9 % (40.0-70.0); PLATELET COUNT (AUTO) 177 K/uL (150-450); RED CELL DISTRIBUTION WIDTH 14.8 % (11.5-14.5)
[2023-01-22 06:48] LABS: PROTHROMBIN TIME 10.7 SEC (9.4-11.6)
[2023-01-22 06:51] LABS: ANION GAP 11 mmol/L (8-16); CALCIUM, TOTAL 8.1 mg/dL (8.8-10.5); CARBON DIOXIDE 24 mmol/L (22-29); CHLORIDE 108 mmol/L (98-107); CREATININE 0.94 mg/dL (0.60-1.30); GLOMERULAR FILTR. RATE CALC > 60 mL/min (>60); GLUCOSE,RANDOM 108 mg/dL (70-110); POTASSIUM 4.1 mmol/L (3.5-5.1); SODIUM SERUM 142 mmol/L (136-145)
[2023-01-22 06:56] LABS: ALBUMIN 3.3 g/dL (3.4-5.0); ALKALINE PHOSPHATASE 97 U/L (46-116); ASPARTATE AMINOTRANSFERASE 21 U/L (15-37); BILIRUBIN,TOTAL 0.9 mg/dL (0.1-1.0); TOTAL PROTEIN, SERUM 6.5 g/dL (6.4-8.2)
[2023-01-22 07:05] LABS: ALANINE AMINOTRANSFERASE 17 U/L (12-78)
[2023-01-22 07:51] LABS: GLUCOMETER DEV NAME(LOC) ER.6
[2023-01-22 08:41] VITALS: TEMP 97.8
[2023-01-22 09:50] VITALS: BP 121/72; PULSE 70; RESP 15
== END 2023-01-22 10:04 | disposition home or self-care (01) ==
LOC: EMS 04:49
DX: R20.2 Paresthesia of skin (principal); M16.0 Bilateral primary osteoarthritis of hip; Z79.899 Other long term (current) drug therapy
CPT/HCPCS: 70450; 71045; 80053; 82962; 84484; 85025; 85610; 93005; 99285; 36415-L1; 36415-TC

== ENCOUNTER 2023-01-22 10:28 | Emergency (ER) | payer MEDICARE, OTHER ==
[~2023-01-22] VITALS: Ht 172.7 cm; Wt 90.9 kg
[2023-01-22 11:16] VITALS: BP 122/86; PULSE 85; RESP 20; TEMP 98.7
== END 2023-01-22 11:19 | disposition home or self-care (01) ==
LOC: EMS 10:47
DX: R20.2 Paresthesia of skin (principal); N40.0 Benign prostatic hyperplasia without lower urinary tract symptoms
CPT/HCPCS: 99283; Z7502

== ENCOUNTER 2023-01-24 10:15 | Inpatient (IN) | payer MEDICARE, OTHER ==
[~2023-01-24] VITALS: Ht 172.7 cm; Wt 90.9 kg
[2023-01-24 11:05] LABS: BASOPHILS % (AUTO) 0.7 % (0.0-2.0); EOSINOPHILS % (AUTO) 3.6 % (1.0-6.0); HEMATOCRIT 38.5 % (41-53); HEMOGLOBIN 13.1 g/dL (13.5-17.5); LYMPHOCYTES % (AUTO) 22.5 % (22.0-44.0); MEAN CORPUSCULAR HEMOGLOBIN 32.4 pg (26.0-34.0); MEAN CORPUSCULAR VOLUME 95 fL (80-100); MONOCYTES # (AUTO) 0.5 K/uL (0.1-1.0); MONOCYTES % (AUTO) 10.5 % (2.0-9.0); NEUTROPHILS # (AUTO) 2.8 K/uL (1.8-7.7); NEUTROPHILS % (AUTO) 62.7 % (40.0-70.0); PLATELET COUNT (AUTO) 179 K/uL (150-450); RED BLOOD CELL COUNT(AUTO) 4.04 MIL/uL (4.50-5.90)
[2023-01-24 11:12] LABS: ANION GAP 23 mmol/L (8-16); CALCIUM, TOTAL 8.5 mg/dL (8.8-10.5); CARBON DIOXIDE 22 mmol/L (22-29); CHLORIDE 104 mmol/L (98-107); CREATININE 0.82 mg/dL (0.60-1.30); GLOMERULAR FILTR. RATE CALC > 60 mL/min (>60); GLUCOSE,RANDOM 106 mg/dL (70-110); SODIUM SERUM 149 mmol/L (136-145)
[2023-01-24 11:17] LABS: ALANINE AMINOTRANSFERASE 16 U/L (12-78); ALBUMIN 3.4 g/dL (3.4-5.0); ALKALINE PHOSPHATASE 100 U/L (46-116); ASPARTATE AMINOTRANSFERASE 16 U/L (15-37); BILIRUBIN,TOTAL 1.1 mg/dL (0.1-1.0); TOTAL PROTEIN, SERUM 6.8 g/dL (6.4-8.2)
[2023-01-24] MEDS ORDERED: DEXTROSE 5%-WATER 1,000 ML IV ONE (11:45)
[2023-01-24] MEDS ORDERED: OxyCODONE HCL/ACETAMINOPHEN 5-325 MG TABLET PO PRN (11:45)
[2023-01-24] MEDS ORDERED: MAGNESIUM HYDROXIDE SUSPENSION 30 ML UDCUP PO PRN (11:45)
[2023-01-24 14:40] LABS: APPEARANCE,URINE CLEAR (CLEAR); BILIRUBIN,URINE NEGATIVE (NEGATIVE); GLUCOSE, URINE (UA) NEGATIVE (NEGATIVE); KETONES,URINE NEGATIVE (NEGATIVE); LEUKOCYTE ESTERASE ,URINE NEGATIVE (NEGATIVE); NITRATE,URINE NEGATIVE (NEGATIVE); OCCULT BLOOD,URINE NEGATIVE (NEGATIVE); PROTEIN,URINE NEGATIVE (NEGATIVE); SPECIFIC GRAVITIY, URINE 1.024 (1.003-1.030); UROBILINOGEN,URINE <=1.0 mg/dL (<=1.0)
[2023-01-24] MEDS: OxyCODONE HCL/ACETAMINOPHEN 5-325 MG TABLET PO PRN (15:47)
[2023-01-24 15:58] VITALS: BP 145/98; PULSE 79; RESP 18; TEMP 97.9
[2023-01-24] MEDS: HEPARIN SODIUM,PORCINE 5,000 UNITS/ML VIAL SQ SCH ×2 (16:13→23:31)
[2023-01-24 19:22] VITALS: BP 102/69; PULSE 73; RESP 20; TEMP 98
[2023-01-24] MEDS: TAMSULOSIN HCL 0.4 MG CAPSULE PO SCH (20:33)
[2023-01-24] MEDS: ACETAMINOPHEN 325 MG TABLET PO PRN (20:34)
[2023-01-24] MEDS: ZOLPIDEM TARTRATE 5 MG TABLET PO PRN (23:29)
[2023-01-25 03:09] VITALS: BP 119/81; PULSE 69; RESP 20; TEMP 98.1
[2023-01-25 07:46] LABS: ANION GAP 7 mmol/L (8-16); CALCIUM, TOTAL 8.4 mg/dL (8.8-10.5); CARBON DIOXIDE 23 mmol/L (22-29); CHLORIDE 106 mmol/L (98-107); CREATININE 0.91 mg/dL (0.60-1.30); GLOMERULAR FILTR. RATE CALC > 60 mL/min (>60); GLUCOSE,RANDOM 105 mg/dL (70-110); POTASSIUM 3.7 mmol/L (3.5-5.1); SODIUM SERUM 136 mmol/L (136-145)
[2023-01-25 07:50] VITALS: BP 120/73; PULSE 70; RESP 20; TEMP 98.9
[2023-01-25] MEDS: HEPARIN SODIUM,PORCINE 5,000 UNITS/ML VIAL SQ SCH ×3 (09:23→23:04)
[2023-01-25] MEDS: ATORVASTATIN CALCIUM 20 MG TABLET PO SCH (09:24)
[2023-01-25] MEDS: ASPIRIN 81 MG CHEWABLE TABLET PO SCH (09:24)
[2023-01-25] MEDS: FAMOTIDINE 20 MG TABLET PO SCH (09:24)
[2023-01-25] MEDS: SERTRALINE HCL 50 MG TABLET PO SCH (09:25)
[2023-01-25 15:58] VITALS: BP 104/68; PULSE 64; RESP 18; TEMP 97.8
[2023-01-25 19:10] VITALS: BP 127/81; PULSE 80; RESP 18; TEMP 97.9
[2023-01-25] MEDS: TAMSULOSIN HCL 0.4 MG CAPSULE PO SCH (19:54)
[2023-01-26] MEDS: ZOLPIDEM TARTRATE 5 MG TABLET PO PRN ×2 (02:09→21:23)
[2023-01-26 06:03] VITALS: BP 145/80; PULSE 74; RESP 20; TEMP 97.7
[2023-01-26 07:30] VITALS: BP 131/74; PULSE 70; RESP 20; TEMP 97.7
[2023-01-26] MEDS: HEPARIN SODIUM,PORCINE 5,000 UNITS/ML VIAL SQ SCH ×3 (08:01→23:23)
[2023-01-26] MEDS: FAMOTIDINE 20 MG TABLET PO SCH (08:02)
[2023-01-26] MEDS: ATORVASTATIN CALCIUM 20 MG TABLET PO SCH (08:02)
[2023-01-26] MEDS: SERTRALINE HCL 50 MG TABLET PO SCH (08:02)
[2023-01-26] MEDS: ASPIRIN 81 MG CHEWABLE TABLET PO SCH (08:02)
[2023-01-26 15:27] VITALS: BP 105/69; PULSE 73; RESP 19; TEMP 98
[2023-01-26 19:22] VITALS: BP 131/77; PULSE 77; RESP 20; TEMP 97.8
[2023-01-26 20:41] LABS: GLUCOMETER DEV NAME(LOC) 6N.1
[2023-01-26 20:41] LABS: GLUCOMETER DEV NAME(LOC) 6N.1
[2023-01-26] MEDS: TAMSULOSIN HCL 0.4 MG CAPSULE PO SCH (21:23)
[2023-01-27 06:11] VITALS: BP 120/85; PULSE 69; RESP 20; TEMP 97.7
[2023-01-27 07:56] VITALS: BP 120/65; PULSE 67; RESP 20; TEMP 97.5
[2023-01-27] MEDS: ATORVASTATIN CALCIUM 20 MG TABLET PO SCH (08:13)
[2023-01-27] MEDS: FAMOTIDINE 20 MG TABLET PO SCH (08:13)
[2023-01-27] MEDS: ASPIRIN 81 MG CHEWABLE TABLET PO SCH (08:14)
[2023-01-27] MEDS: SERTRALINE HCL 50 MG TABLET PO SCH (08:14)
[2023-01-27] MEDS: HEPARIN SODIUM,PORCINE 5,000 UNITS/ML VIAL SQ SCH ×2 (08:14→16:16)
[2023-01-27 14:39] VITALS: BP 130/80; PULSE 72; RESP 20; TEMP 98.1
[2023-01-27 19:39] VITALS: BP 136/89; PULSE 73; RESP 19; TEMP 98.1
[2023-01-27] MEDS: TAMSULOSIN HCL 0.4 MG CAPSULE PO SCH (20:26)
[2023-01-28] MEDS: HEPARIN SODIUM,PORCINE 5,000 UNITS/ML VIAL SQ SCH ×3 (00:20→16:01)
[2023-01-28 04:06] VITALS: BP 144/79; PULSE 73; RESP 20; TEMP 98
[2023-01-28 07:33] VITALS: BP 118/79; PULSE 18; RESP 18; TEMP 97.6
[2023-01-28] MEDS: SERTRALINE HCL 50 MG TABLET PO SCH (08:14)
[2023-01-28] MEDS: ATORVASTATIN CALCIUM 20 MG TABLET PO SCH (08:14)
[2023-01-28] MEDS: FAMOTIDINE 20 MG TABLET PO SCH (08:15)
[2023-01-28] MEDS: ASPIRIN 81 MG CHEWABLE TABLET PO SCH (08:15)
[2023-01-28 15:58] VITALS: BP 135/90; PULSE 77; RESP 17; TEMP 97.6
[2023-01-28 19:22] VITALS: BP 131/73; PULSE 80; RESP 18; TEMP 97.6
[2023-01-28] MEDS: TAMSULOSIN HCL 0.4 MG CAPSULE PO SCH (20:48)
[2023-01-29] MEDS: HEPARIN SODIUM,PORCINE 5,000 UNITS/ML VIAL SQ SCH ×3 (00:24→16:09)
[2023-01-29 03:47] VITALS: BP 157/91; PULSE 80; RESP 20; TEMP 98.1
[2023-01-29] MEDS: SERTRALINE HCL 50 MG TABLET PO SCH (08:41)
[2023-01-29] MEDS: FAMOTIDINE 20 MG TABLET PO SCH (08:41)
[2023-01-29] MEDS: ASPIRIN 81 MG CHEWABLE TABLET PO SCH (08:42)
[2023-01-29] MEDS: ATORVASTATIN CALCIUM 20 MG TABLET PO SCH (08:42)
[2023-01-29 09:10] VITALS: BP 117/73; PULSE 81; RESP 19; TEMP 99.8
[2023-01-29] MEDS: ACETAMINOPHEN 325 MG TABLET PO PRN (18:04)
[2023-01-29] MEDS: ONDANSETRON HCL 4 MG/2 ML VIAL IVP PRN (18:05)
[2023-01-29 20:05] VITALS: BP 130/71; PULSE 82; RESP 20; TEMP 99.2
[2023-01-29] MEDS: TAMSULOSIN HCL 0.4 MG CAPSULE PO SCH (20:39)
[2023-01-30] MEDS: HEPARIN SODIUM,PORCINE 5,000 UNITS/ML VIAL SQ SCH ×2 (00:43→08:04)
[2023-01-30 02:01] VITALS: BP 145/85; PULSE 85; RESP 20; TEMP 98.5
[2023-01-30 07:23] LABS: BASOPHILS % (AUTO) 0.5 % (0.0-2.0); EOSINOPHILS % (AUTO) 0.2 % (1.0-6.0); HEMATOCRIT 35.1 % (41-53); HEMOGLOBIN 11.9 g/dL (13.5-17.5); LYMPHOCYTES # (AUTO) 0.5 K/uL (1.0-4.8); LYMPHOCYTES % (AUTO) 14.6 % (22.0-44.0); MEAN CORPUSCULAR HEMOGLOBIN 32.3 pg (26.0-34.0); MEAN CORPUSCULAR VOLUME 95 fL (80-100); MONOCYTES # (AUTO) 0.5 K/uL (0.1-1.0); NEUTROPHILS # (AUTO) 2.3 K/uL (1.8-7.7); NEUTROPHILS % (AUTO) 68.7 % (40.0-70.0); PLATELET COUNT (AUTO) 125 K/uL (150-450); RED CELL DISTRIBUTION WIDTH 15.1 % (11.5-14.5)
[2023-01-30 07:43] LABS: ANION GAP 8 mmol/L (8-16); CALCIUM, TOTAL 8.4 mg/dL (8.8-10.5); CARBON DIOXIDE 23 mmol/L (22-29); CHLORIDE 102 mmol/L (98-107); CREATININE 1.05 mg/dL (0.60-1.30); GLOMERULAR FILTR. RATE CALC > 60 mL/min (>60); GLUCOSE,RANDOM 119 mg/dL (70-110); SODIUM SERUM 133 mmol/L (136-145)
[2023-01-30] MEDS: ATORVASTATIN CALCIUM 20 MG TABLET PO SCH (08:04)
[2023-01-30] MEDS: ASPIRIN 81 MG CHEWABLE TABLET PO SCH (08:04)
[2023-01-30] MEDS: FAMOTIDINE 20 MG TABLET PO SCH (08:04)
[2023-01-30] MEDS: SERTRALINE HCL 50 MG TABLET PO SCH (08:04)
[2023-01-30 08:20] VITALS: BP 105/68; PULSE 84; RESP 19; TEMP 98.4
[2023-01-30 16:06] VITALS: BP 110/79; PULSE 77; RESP 19; TEMP 98.4
[2023-01-30] MEDS: ONDANSETRON HCL 4 MG/2 ML VIAL IVP PRN (18:01)
[2023-01-30 19:50] VITALS: BP 122/71; PULSE 79; RESP 18; TEMP 98.3
[2023-01-30] MEDS: TAMSULOSIN HCL 0.4 MG CAPSULE PO SCH (20:16)
[2023-01-30] MEDS: OxyCODONE HCL/ACETAMINOPHEN 5-325 MG TABLET PO PRN (20:17)
[2023-01-31] MEDS: ZOLPIDEM TARTRATE 5 MG TABLET PO PRN ×2 (01:03→21:39)
[2023-01-31 04:10] VITALS: BP 132/90; PULSE 76; RESP 16; TEMP 97.8
[2023-01-31 06:01] LABS: GLUCOMETER DEV NAME(LOC) 6S.2
[2023-01-31] MEDS: ATORVASTATIN CALCIUM 20 MG TABLET PO SCH (07:50)
[2023-01-31] MEDS: ASPIRIN 81 MG CHEWABLE TABLET PO SCH (07:50)
[2023-01-31] MEDS: SERTRALINE HCL 50 MG TABLET PO SCH (07:50)
[2023-01-31] MEDS: FAMOTIDINE 20 MG TABLET PO SCH (07:50)
[2023-01-31 08:00] VITALS: BP 113/70; PULSE 78; RESP 17; TEMP 97.6
[2023-01-31 19:36] VITALS: BP 128/75; PULSE 80; RESP 18; TEMP 97.8
[2023-01-31] MEDS: TAMSULOSIN HCL 0.4 MG CAPSULE PO SCH (21:39)
[2023-02-01 04:25] VITALS: BP 119/74; PULSE 79; RESP 18; TEMP 97.8
[2023-02-01 08:00] VITALS: BP 116/66; PULSE 80; RESP 20; TEMP 97.8
[2023-02-01] MEDS: ASPIRIN 81 MG CHEWABLE TABLET PO SCH (08:08)
[2023-02-01] MEDS: FAMOTIDINE 20 MG TABLET PO SCH (08:08)
[2023-02-01] MEDS: SERTRALINE HCL 50 MG TABLET PO SCH (08:08)
[2023-02-01] MEDS: ATORVASTATIN CALCIUM 20 MG TABLET PO SCH (08:08)
[2023-02-01 17:00] VITALS: BP 119/75; PULSE 83; RESP 18; TEMP 98
[2023-02-01 19:41] VITALS: BP 106/66; PULSE 81; RESP 20; TEMP 97.7
[2023-02-01] MEDS: TAMSULOSIN HCL 0.4 MG CAPSULE PO SCH (20:48)
[2023-02-01] MEDS: ZOLPIDEM TARTRATE 5 MG TABLET PO PRN (20:48)
[2023-02-02 05:15] VITALS: BP 113/82; PULSE 77; RESP 20; TEMP 97.8
[2023-02-02 07:20] VITALS: BP 143/86; PULSE 77; RESP 20; TEMP 97.8
[2023-02-02] MEDS: FAMOTIDINE 20 MG TABLET PO SCH (07:58)
[2023-02-02] MEDS: ATORVASTATIN CALCIUM 20 MG TABLET PO SCH (07:58)
[2023-02-02] MEDS: ASPIRIN 81 MG CHEWABLE TABLET PO SCH (07:58)
[2023-02-02] MEDS: SERTRALINE HCL 50 MG TABLET PO SCH (07:58)
[2023-02-02 16:00] VITALS: BP 121/80; PULSE 78; RESP 20; TEMP 98.1
[2023-02-02] MEDS: TAMSULOSIN HCL 0.4 MG CAPSULE PO SCH (20:05)
[2023-02-02 20:25] VITALS: BP 126/67; PULSE 79; RESP 20; TEMP 98.3
[2023-02-02] MEDS: ZOLPIDEM TARTRATE 5 MG TABLET PO PRN (23:43)
[2023-02-03 04:51] VITALS: BP 121/78; PULSE 70; RESP 20; TEMP 98.2
[2023-02-03 08:00] VITALS: BP 140/84; PULSE 73; RESP 18; TEMP 98.4
[2023-02-03] MEDS: SERTRALINE HCL 50 MG TABLET PO SCH (08:16)
[2023-02-03] MEDS: FAMOTIDINE 20 MG TABLET PO SCH (08:16)
[2023-02-03] MEDS: ATORVASTATIN CALCIUM 20 MG TABLET PO SCH (08:16)
[2023-02-03] MEDS: ASPIRIN 81 MG CHEWABLE TABLET PO SCH (08:16)
[2023-02-03] MEDS ORDERED: ASPI-1450 PO (15:25)
[2023-02-03] MEDS ORDERED: ATOR20TA PO (15:26)
[2023-02-03] MEDS ORDERED: FAMO20 PO (15:27)
[2023-02-03] MEDS ORDERED: MAGN-169 PO (15:39)
== END 2023-02-03 17:05 | disposition home or self-care (01) | DRG 554 ==
LOC: EMS 10:24 → 6S 13:58
PROVIDERS: ADMIT Internal Medicine; ATTEND Internal Medicine
DX: M16.12 Unilateral primary osteoarthritis, left hip (principal); E87.0 Hyperosmolality and hypernatremia; D61.818 Other pancytopenia; E87.1 Hypo-osmolality and hyponatremia; E66.9 Obesity, unspecified; G89.29 Other chronic pain; N40.0 Benign prostatic hyperplasia without lower urinary tract symptoms; F32.A Depression, unspecified; Z86.73 Personal history of transient ischemic attack (TIA), and cerebral infarction without residual deficits; Z79.82 Long term (current) use of aspirin; Z79.899 Other long term (current) drug therapy; Z68.30 Body mass index [BMI] 30.0-30.9, adult
CPT/HCPCS: 80048; 80053; 81003; 82962; 84484; 85025; 93005; 97116; 97162; 97530; 99285; J1644; J2405; J7060